=== PATIENT | male | born 1990 | race Two or more races ===

== ENCOUNTER 2016-07-01 10:57 | Emergency (ER) | payer OTHER ==
[2016-07-01] MEDS ORDERED: HYDROCODONE/ACETAMINOPHEN 5/325MG TABLET ONE (13:19)
[2016-07-01] MEDS ORDERED: IBUPROFEN 600 MG TABLET ONE (13:19)
== END 2016-07-01 13:32 | disposition home or self-care (01) ==
LOC: ED 10:57
DX: L05.01 Pilonidal cyst with abscess (principal)
CPT/HCPCS: 99283 ×2; 10080 ×2; A9270 ×2